=== PATIENT | male | born 1980 | race African-American/Black ===

== ENCOUNTER 2021-09-09 14:30 | Emergency (ER) | payer OTHER ==
[~2021-09-09 14:30] MED LIST: CATAPRES0.1 MG PO; OFLOXACIN5 M1 AD
[2021-09-09 17:44] LABS: BASOPHIL 0.2 % (0-2); EOSINOPHIL 0.2 % (0-5); HCT 49.4 % (42.0-52.0); HGB 16.2 g/dl (13.2-18.0); LYMPHOCYTE 14.2 % (15-48); MCHC 32.8 g/dL (32.0-36.0); MCV 85.5 fL (78.0-100.0); MONOCYTE 13.3 % (0-12); MPV 9.9 fL (6.0-9.5); NEUTROPHIL 71.9 % (41-80); NRBC 0; PLT 249 K/uL (150-400); RBC 5.78 M/uL (4.70-6.00); RDW 14.6 % (11.5-14.0); WBC 8.2 K/uL (4.0-10.5)
[2021-09-09 18:09] LABS: BUN/CREAT RATIO (CALC) 6.8 RATIO; CREATININE 1.32 mg/dL (0.67-1.17); POTASSIUM 3.9 mmol/L (3.5-5.1)
== END 2021-09-09 18:48 | disposition home or self-care (01) ==
LOC: FER 14:30
PROVIDERS: Emergency Medicine
DX: U07.1 COVID-19 (principal); I10 Essential (primary) hypertension; F17.200 Nicotine dependence, unspecified, uncomplicated
CPT/HCPCS: 36415; 71045; 80048; 84484; 85025; 85379; 93005

== ENCOUNTER 2021-12-20 16:59 | Emergency (ER) | payer OTHER ==
[2021-12-20 20:09] LABS: BASOPHIL 0.5 % (0-2); EOSINOPHIL 0.9 % (0-5); HCT 42.4 % (42.0-52.0); HGB 13.9 g/dl (13.2-18.0); LYMPHOCYTE 23.6 % (15-48); MCH 28.2 pg (25.0-31.0); MCHC 32.8 g/dL (32.0-36.0); MONOCYTE 7.3 % (0-12); MPV 10.6 fL (6.0-9.5); NEUTROPHIL 67.5 % (41-80); NRBC 0; PLT 299 K/uL (150-400); RBC 4.93 M/uL (4.70-6.00); RDW 14.7 % (11.5-14.0); WBC 6.5 K/uL (4.0-10.5)
[2021-12-20 20:19] LABS: BUN/CREAT RATIO (CALC) 6.7 RATIO; CREATININE 1.35 mg/dL (0.67-1.17); POTASSIUM 3.7 mmol/L (3.5-5.1)
[2021-12-20 21:02] LABS: BILIRUBIN NEGATIVE (NEGATIVE); BLOOD NEGATIVE Ery/uL (NEGATIVE); CLARITY CLEAR (CLEAR); COLOR YELLOW (YELLOW); GLUCOSE (U) NORMAL (NORMAL); LEUKOCYTES NEGATIVE Leu/uL (NEGATIVE); NITRITE NEGATIVE (NEGATIVE); PROTEIN NEGATIVE (NEGATIVE); SPECIFIC GRAVITY 1.025 (1.001-1.030); UROBILINOGEN 0.2 mg/dL (0.2-1.0)
== END 2021-12-20 23:36 | disposition home or self-care (01) ==
LOC: FER 16:59
PROVIDERS: Physician Assistant
DX: R51.9 Headache, unspecified (principal); N18.9 Chronic kidney disease, unspecified; F17.210 Nicotine dependence, cigarettes, uncomplicated; Z91.14 Patient's other noncompliance with medication regimen
CPT/HCPCS: 36415; 80048; 81003; 85025; 99283